=== PATIENT | female | born 1965 | race Caucasian/White ===

== ENCOUNTER 2020-04-20 12:21 | Emergency (ER) | payer MEDICAID ==
[~2020-04-20] VITALS: Ht 149.9 cm; Wt 74.4 kg
[2020-04-20 12:31] VITALS: BP 149/84; Ht 149.9 cm; Wt 74.4 kg
[2020-04-20] MEDS ORDERED: APAP325 MG PO (15:53)
== END 2020-04-20 16:24 | disposition home or self-care (01) ==
LOC: ED 12:21
DX: S61.212A Laceration without foreign body of right middle finger without damage to nail, initial encounter (principal); S61.512A Laceration without foreign body of left wrist, initial encounter; I10 Essential (primary) hypertension; Z88.5 Allergy status to narcotic agent; W26.8XXA Contact with other sharp object(s), not elsewhere classified, initial encounter; Y93.89 Activity, other specified; Y92.89 Other specified places as the place of occurrence of the external cause; Y99.8 Other external cause status
CPT/HCPCS: 90715; J2001